=== PATIENT | female | born 1940 | race Caucasian/White ===

== ENCOUNTER 2025-01-07 20:31 | Emergency (ER) | payer MEDICARE, OTHER, SELFPAY ==
[2025-01-07] MEDS ORDERED: Lidocaine 1%/Epinephrine 1:100K 10 ML VIAL ONE (21:10)
[2025-01-07] MEDS ORDERED: Bacitracin 1 PK ONE (22:10)
== END 2025-01-07 22:23 | disposition home or self-care (01) ==
LOC: BURERS 20:31
DX: S81.812A Laceration without foreign body, left lower leg, initial encounter (principal); E11.9 Type 2 diabetes mellitus without complications; I48.91 Unspecified atrial fibrillation; I50.9 Heart failure, unspecified; Z79.84 Long term (current) use of oral hypoglycemic drugs; W22.8XXA Striking against or struck by other objects, initial encounter
CPT/HCPCS: 12001; 99283